=== PATIENT | male | born 1995 | race Caucasian/White ===

== ENCOUNTER 2016-07-14 21:15 | Emergency (ER) | payer MEDICAID ==
[~2016-07-14] VITALS: Ht 172.7 cm; Wt 80.0 kg
[2016-07-14] MEDS ORDERED: IBUPROFEN 600MG TABLET PO ONE (22:45)
[2016-07-14] MEDS ORDERED: FLUORESCEIN SODIUM 1MG/STRIP RIGHTEYE ONE (22:45)
[2016-07-14 22:58] VITALS: BP 117/58
== END 2016-07-14 23:50 | disposition home or self-care (01) ==
LOC: ER 21:15
DX: T15.91XA Foreign body on external eye, part unspecified, right eye, initial encounter (principal)
CPT/HCPCS: 99283; J7030

== ENCOUNTER 2016-07-29 16:09 | Emergency (ER) | payer MEDICAID ==
[~2016-07-29] VITALS: Ht 172.7 cm; Wt 79.0 kg
[2016-07-29 19:00] VITALS: BP 112/71
== END 2016-07-29 19:35 | disposition home or self-care (01) ==
LOC: ER 19:04
DX: S02.2XXA Fracture of nasal bones, initial encounter for closed fracture (principal); W21.02XA Struck by soccer ball, initial encounter; Y93.66 Activity, soccer; Y92.322 Soccer field as the place of occurrence of the external cause; Y99.8 Other external cause status
CPT/HCPCS: 99281

== ENCOUNTER 2016-11-07 12:39 | Emergency (ER) | payer MEDICAID ==
[~2016-11-07] VITALS: Ht 167.6 cm; Wt 75.0 kg
[2016-11-07] MEDS ORDERED: IBUPROFEN 600MG TABLET PO STA (13:31)
[2016-11-07 14:35] VITALS: BP 105/64
== END 2016-11-07 15:05 | disposition home or self-care (01) ==
LOC: ER 13:44
DX: M94.0 Chondrocostal junction syndrome [Tietze] (principal); M25.512 Pain in left shoulder; V43.52XA Car driver injured in collision with other type car in traffic accident, initial encounter; Y93.89 Activity, other specified; Y92.488 Other paved roadways as the place of occurrence of the external cause
CPT/HCPCS: 71010; 93005; 99283